=== PATIENT | male | born 1945 | race Caucasian/White ===

== ENCOUNTER 2021-02-26 14:37 | Inpatient (IN) | payer MEDICARE ==
[~2021-02-26] VITALS: Ht 177.8 cm; Wt 90.6 kg
[2021-02-26] MEDS ORDERED: CARBIDOPA-LEVODOPA PO (14:51)
[2021-02-26] MEDS ORDERED: COZAAR 25 MG TA25 M1 PO (14:51)
[2021-02-26] MEDS ORDERED: FLONASE 0.05%50 MCG INH (14:52)
[2021-02-26] MEDS ORDERED: FUROSEMIDE 20 M20 MG PO (14:52)
[2021-02-26] MEDS ORDERED: TOPROL XL25 MG PO (14:53)
[2021-02-26] MEDS ORDERED: KETOCONAZOLE TOP (14:53)
[2021-02-26] MEDS ORDERED: SINGULAIR 10 MG10 M1 PO (14:54)
[2021-02-26] MEDS ORDERED: PRILOSEC OTC20 MG PO (14:55)
[2021-02-26 17:14] VITALS: BP 118/68
[2021-02-26 19:00] VITALS: BP 131/62
[2021-02-27 04:33] LABS: HEMOGLOBIN 14.2 gm/dL (14.0-18.0); MCHC 33.8 g/dL (28.0-37.0); MCV 91.6 fL (80.0-100.0); MPV 9.4 fl. (7.2-11.1); RBC 4.58 mil/uL (4.50-6.00); RDW-CV 14.8 % (10.5-14.5); WBC 7.1 thou/uL (4.0-11.0)
[2021-02-27 04:58] LABS: CALCIUM 8.8 mg/dL (8.5-10.1); POTASSIUM 4.1 mmol/L (3.5-5.1)
--- NOTE | 2021-02-27 06:27 | NUR ---
Alert and oriented x 3 and forgetful. He is repetitive in his speech. He does have some neck curvature and has pillow to keep his head elevated to comfort. He has incontinence and uses a condom catheter. New external,male catheter placed and keys bag attached. He has had a large amount of urine output. He has been turned every 2 hours. He took his meds well with water. He has been awake nost of the night.
[2021-02-27 07:43] VITALS: BP 158/72
--- NOTE | 2021-02-27 10:08 | NUR ---
Nutrition: Pt admitted to rehab with Parkinsons. Not a lot of info yet. Per nursing, pt is eating fine. 2gm Na diet. Wt: 202#. Repetitive speech. Will follow weekly. Low risk at this time.
[2021-02-27 19:55] VITALS: BP 119/54
--- NOTE | 2021-02-28 05:47 | NUR ---
ASSUMED CARES AT 1920. ALERT AND ORIENTED. PLEASANT. DENIED ANY NEED FOR PAIN MEDS. CONDOM CATHETER IN PLACE. SLEPT MOST OF THE NIGHT. CALL LIGHT IN REACH. BED ALARM ON.
[2021-02-28 08:00] VITALS: BP 132/61
--- NOTE | 2021-02-28 17:23 | NUR ---
AM ASSESSMENT AND VITAL SIGNS COMPLETED DOCUMENTED. PT WORKED WITH PT, OT AND ST. EXTERNAL MALE CATHETER REPLACED TODAY. PT HAS A GOOD APPETITE AND FEEDS HIMSELF WITH MINIMAL SET UP. PT IS ABLE TO TRANSFER WITH MOD ASSIST OF TWO AND A LOT OF CUEING FOR SAFETY. NO C/O PAIN OR DISCOMFORT THIS SHIFT. FALL PRECAUTIONS AND HOURLY ROUNDING CONTINUE.
[2021-02-28 19:50] VITALS: BP 115/51
--- NOTE | 2021-03-01 04:35 | NUR ---
ASSUMED PT CARE AT 1930. PT RESTING IN BED AT SHIFT CHANGE. POLITE AND COOPERATIVE WITH CARES. DENIES PAIN. CONDOM CATHETER IN PLACE. SLEPT WELL OVERNIGHT. CALL LIGHT IN REACH, BED ALARM ON FOR SAFETY. HOURLY ROUNDING IN PROGRESS, WILL CONTINUE TO MONITOR.
[2021-03-01 08:00] VITALS: BP 134/68
--- NOTE | 2021-03-01 16:37 | NUR ---
PATIENT COMPLETED THERAPIES THIS SHIFT ORDERED. UP TO WHEELCHAIR THIS SHIFT, REPOSITIONED AND WAFFLE CUSHION IN PLACE. CONDOM CATH IN PLACE, SKIN ASSESSED; URINE OUTPUT CLEAR YELLOW TO DRAINAGE BAG. SMALL BM NOTED PER BSC. MAGIC MOUTHWASH ORDERED SCHED THIS SHIFT BY DR. SAMS FOR SORES TO INSIDE OF MOUTH. UP WITH ASSISTANCE; GAIT BELT AND WALKER. HERE THIS AFTERNOON.
[2021-03-01 19:55] VITALS: BP 97/47
[2021-03-01 20:12] LABS: URINE BILIRUBIN NEGATIVE (Negative); URINE BLOOD NEGATIVE (Negative); URINE CLARITY CLEAR; URINE COLOR YELLOW; URINE GLUCOSE-RANDOM NEGATIVE (Negative); URINE KETONES NEGATIVE (Negative); URINE LEUKOCYTES-REFLEX NEGATIVE (Negative); URINE NITRITE-REFLEX NEGATIVE (Negative); URINE PROTEIN NEGATIVE (Negative); URINE SPECIFIC GRAVITY 1.025 (1.005-1.030); URINE UROBILINOGEN 0.2 E.U./dl (0.2-1.0)
--- NOTE | 2021-03-02 04:55 | NUR ---
ASSUMED PT CARE AT 1930. PT ALERT AND ORIENTED X4, POLITE AND COOPERATIVE WITH CARES. PT TRANSFERRED TO BED WITH ASSIST OF TWO, GAIT BELT AND WALKER. PT SUCCESSFULLY USED URINAL OVERNIGHT, STAFF EMPTIED. DENIED PAIN. CALL LIGHT IN REACH, BED ALARM ON FOR SAFETY. HOURLY ROUNDING IN PROGRESS, WILL CONTINUE TO MONITOR.
[2021-03-02 07:40] VITALS: BP 142/58
--- NOTE | 2021-03-02 16:36 | NUR ---
PATIENT UP TO WHEELCHAIR THIS SHIFT, WAFFLE CUSHION IN PLACE AND REPOSITIONED IN CHAIR. UP WITH ASSISTANCE, GAIT BELT AND WALKER. PATIENT ASSISTED WITH UPPER AND LOWER BODY DRESSING THIS AM. PATIENT VOIDING PER URINAL WITH ASSISTANCE. PATIENT GIVEN PRN MOM AND SCHED COLACE THIS AM, PATIENT ATTEMPTED TO HAVE A STOOL X 2 BUT WAS NOT SUCCESSFUL VIA BSC.
[2021-03-02 20:00] VITALS: BP 106/74
--- NOTE | 2021-03-03 05:34 | NUR ---
ASSUMED CARES AT 1915. ALERT AND ORIENTED. PLEASANT. MOD ASSIST WITH GAIT BELT AND WALKER. UP TO BSC OR USED URINAL. DENIED ANY NEED FOR PAIN MEDS. SLEPT OFF AND ON. CALL LIGHT IN REACH AND BED ALARM ON.
[2021-03-03 08:00] VITALS: BP 127/55
--- NOTE | 2021-03-03 14:41 | NUR ---
INITIAL ASSESSMENT: [facility] WITH A DIAGNOSIS OF PARKINSON'S. PT A&O. PT INFORMS THAT PRIOR TO ADMIT HE WAS ACTIVE, INDEPENDENT WITH ADL'S, AND ABLE TO DRIVE. PT RESIDES AT HOME WITH SPOUSE. PT USES A CANE FOR MOBILITY, BUT ALSO OWNS A WALKER. PT HAS 0 HX OF HH OR SNF. CM ATTEMPTED T CONTACT PT'S TO DISCUSS [facility] AND PROCESS. NO ANSWER, BUT CM WILL F/U WITH HER AT ANOTHER TIME. CM ORIENTED TO TO THE [facility] AND PROCESSES, RESIDENTS RIGHTS INFO, TEAM [facility], AND TO THE ROLE OF CM. CM WILL REMAIN AVAILABLE TO ASSIST AND FOLLOW NEEDED.
--- NOTE | 2021-03-03 17:12 | NUR ---
AM ASSESSMENT AND VITAL SIGNS COMPLETED DOCUMENTED. PT WORKED WITH PT, OT AND ST TODAY, TOLERATED WELL. PT HAS BEEN USING THE URINAL WITHOUT DIFFICULTY. PT TRANSFERS WITH MOD ASSIST OF ONE, GAIT BELT AND WALKER. FALL PRECAUTIONS AND HOURLY ROUNDING CONTINUE.
[2021-03-03 19:00] VITALS: BP 117/51
--- NOTE | 2021-03-04 05:12 | NUR ---
ASSUMED CARE AT 1915. ALERT AND ORIENTED. PLEASANT. DENIED ANY PAIN. MOD ASSIST WITH GAIT BELT AND WALKER. UP TO BSC OR USED URINAL. SLEPT MOST OF THE NIGHT. CALL LIGHT IN REACH AND BED ALARM ON.
[2021-03-04 08:00] VITALS: BP 136/70
[2021-03-04 19:00] VITALS: BP 100/49
--- NOTE | 2021-03-05 02:00 | NUR ---
PT WAS SITTING IN CHAIR FOR ASSESSMENT AND REPORTS NO PAIN AT THIS TIME. HE HAS TRACE TO 1+ EDEMA IN BLE. PT WAS A LITTLE SARCASTIC ABOUT THE DIAGNOSIS OF PARKINSONS, PT WATER REFILLED AND QUESTIONS ANSWERED ABOUT MEDS. CALL LIGHT AND PERSONAL ITEMS WITHIN REACH. CHAIR ALARM IN PLACE FOR SAFETY
[2021-03-05 04:40] LABS: HEMATOCRIT 38.4 % (42.0-52.0); HEMOGLOBIN 13.1 gm/dL (14.0-18.0); MCH 30.9 pg (26.0-34.0); MCV 90.9 fL (80.0-100.0); MPV 9.6 fl. (7.2-11.1); RBC 4.22 mil/uL (4.50-6.00); RDW-CV 14.9 % (10.5-14.5); WBC 7.7 thou/uL (4.0-11.0)
[2021-03-05 04:45] LABS: CALCIUM 8.7 mg/dL (8.5-10.1); CREATININE 1.4 mg/dL (0.6-1.3); POTASSIUM 4.1 mmol/L (3.5-5.1)
--- NOTE | 2021-03-05 04:54 | NUR ---
PT AO X4 SITTING IN WHEEL CHAIR FOR ASSESSMENT. PT STATES HE HAS NOT HAD A BM IN DAYS DESPITE LAXITIVES AND STOOL SOFTNERS. PT HAS DIMINISHED PULSES IN BLE WITH 1+ BLE EDEMA. SHALLOW BREATHS REVEALS CLEAR BREATH SOUNDS. PT IS SKEPTICAL OF RECENT PARKINSONs DIAGNOSIS. PT IS ABLE TO ASSIST IN TRANSFERS WITH GAIT BELT AND GIVEN SOME TIME TO ACCOMPLISH.
[2021-03-05 08:00] VITALS: BP 133/53
--- NOTE | 2021-03-05 18:45 | NUR ---
Pt remained A&O x4 for entire shift. Vital signs stable. Pt pleasant with staff. Pt worked appropriately with therapies. Pt denies any pain. Pt continent of bowel and bladder. Bed in low position, bed/chair alarm on, call light within reach.
[2021-03-05 19:50] VITALS: BP 95/50
--- NOTE | 2021-03-05 23:45 | NUR ---
ASSUMED CARE AT 5. PATIENT RESTED IN W/C WITH LEGS DEPENDENT, DESPITE EDUCATION, UNTIL AFTER 2199. UP WITH GAIT BELT, WALKER, STAND PIVOT. PATIENT ADAMANTLY REFUSED TO REMOVE PANTS EVEN THOUGH THEY WERE, IN HIS WORDS, "SWEATY." PATIENT DENIES INCONTINENCE AND DENIES SPILLING URINAL. C/O HAVING LABS DRAWN AT "4 O'CLOCK IN THE MORNING." EDUCATED ON STANDING ORDERS FOR LABS DRAWN ONCE A WEEK ON WEDNESDAYS. SIGN PLACED ON DOOR TO REQUEST NO LABS UNTIL AFTER 0700. ALSO C/O THAT HE WAS AWAKENED TO GET HIS MEDS AT 0530. EDUCATED THAT IT IS THE [facility]'S RESPONSIBILITY FOR SOME MEDS, AND THE MEDS IN HIS CASE ARE ONES THAT ARE GIVEN BEFORE MEALS, INCLUDING BREAKFAST, FOR OPTIMAL ABSORPTION. PATIENT VERBALIZED UNDERSTANDING. PATIENT HAS ALREADY REFUSED HIS MAGIC MOUTHWASH. VOIDS PER URINAL. TURNS SELF. NO C/O PAIN. HOURLY ROUNDS CONTINUE. BED ALARM ON. CALL LITE IN REACH. WANTS DOOR OPEN.
--- NOTE | 2021-03-06 05:30 | NUR ---
OBSERVED APPEARING TO SLEEP ON HOURLY ROUNDS UNTIL AROUND 0515 WHEN HE AWOKE TO VOID. NO C/O PAIN. VOIDS PER URINAL. HOURLY ROUNDS CONTINUE. BED ALARM ON. CALL LITE IN REACH.
[2021-03-06 08:00] VITALS: BP 133/74
--- NOTE | 2021-03-06 14:57 | NUR ---
TEAM [facility] MEETING HELD YESTERDAY. PLAN TO RE-TEAM THE PT AND HAVE THE PT REMAIN ON THE UNIT FOR ANOTHER WEEK TO CONTINUE THERAPIES. PT AND SPOUSE IN AGREEMENT. PT PROGRESSING TOWARDS GOALS, BUT BARRIERS ARE ATTENTION, TANGENTILE, POOR INSIGHT AND RECALL, PARKINSON'S, FETIGUE, AND DECREASED BALANCE. CM WILL REMAIN AVAILABLE TO ASSIST AND FOLLOW NEEDED.
[2021-03-06 20:19] VITALS: BP 98/47
--- NOTE | 2021-03-07 04:58 | NUR ---
ASSUMED PT CARE AT 1930. PT SITTING UP IN RECLINER AT SHIFT CHANGE. STAYED UP LATE, TRANSFERRED TO BED WITH GAIT BELT, WALKER AND STAND PIVOT. PT VOIDED PER URINAL. TURNS SELF IN BED. DENIED PAIN. CALL LIGHT IN REACH, BED ALARM ON FOR SAFETY. HOURLY ROUNDING IN PROGRESS, WILL CONTINUE TO MONITOR.
[2021-03-07 07:45] VITALS: BP 121/54
--- NOTE | 2021-03-07 16:08 | NUR ---
ALERT AND ORIENTED X4 WITH PERIODS OF FORGETFULNESS. UP WITH 1 ASSIST, GAIT BELT AND WALKER. NO C/O PAIN. INCONTINENT AT TIMES OF URINE. USES CALL LIGHT FOR ASSIST. FALL PRECAUTIONS IN PLACE. BED ALARM AND CHAIR ALARM USED. TAKES PILL WHOLE WITHOUT DIFFICULTY.
[2021-03-07 20:00] VITALS: BP 119/53
--- NOTE | 2021-03-08 04:58 | NUR ---
ASSUMED PT CARE AT 1930. PT ALERT AND ORIENTED, OCCASIONALLY FORGETFUL. SITTING UP IN RECLINER AT SHIFT CHANGE, STAYED UP LATE. TRANSFERRED TO BED WITH GAIT BELT, WALKER AND STAND PIVOT. TAKES PILLS WHOLE WITH WATER ONE AT A TIME WITHOUT DIFFICULTY. VOIDED PER URINAL. TURNS SELF IN BED. DENIED PAIN. SLEPT WELL OVERNIGHT. CALL LIGHT IN REACH, BED ALARM FOR SAFETY. HOURLY ROUNDING IN PROGRESS, WILL CONTINUE TO MONITOR.
[2021-03-08 07:45] VITALS: BP 139/63
[2021-03-08 14:56] LABS: ABSOLUTE BASOPHILS 0.1 thou/uL (0.0-0.2); ABSOLUTE EOSINOPHILS 0.1 thou/uL (0.0-0.7); ABSOLUTE LYMPHOCYTES 1.7 thou/uL (0.8-5.3); ABSOLUTE MONOCYTES 0.5 thou/uL (0.0-1.2); ABSOLUTE NEUTROPHILS 4.8 thou/uL (1.6-8.1); BASOPHILS 1.2 %; EOSINOPHILS 1.8 %; HEMATOCRIT 42.2 % (42.0-52.0); HEMOGLOBIN 14.3 gm/dL (14.0-18.0); LYMPHOCYTES 23.3 %; MCH 31.1 pg (26.0-34.0); MCHC 33.9 g/dL (28.0-37.0); MCV 91.7 fL (80.0-100.0); MONOCYTES 7.3 %; MPV 9.4 fl. (7.2-11.1); NUCLEATED RBCS 0 /100WBC; PLATELET COUNT* 277 thou/uL (150-400); POLYS 66.4 %; RDW-CV 14.6 % (10.5-14.5); WBC 7.2 thou/uL (4.0-11.0)
--- NOTE | 2021-03-08 17:01 | NUR ---
ALERT AND ORIENTED X4. UP WITH 1 ASSIST, GAIT BELT AND WALKER. NO C/O PAIN. USUALLY CONTINENT OF BOWEL AND BLADDER. HAS SOME URGENCY WITH BLADDER AT TIMES. TAKES PILLS WHOLE 1 AT A TIME WITHOUT DIFFICULTY. USES CALL LIGHT FOR ASSIST. FALL PRECAUTIONS IN PLACE. BED ALARM AND CHAIR ALARM USED.
[2021-03-08 19:00] VITALS: BP 118/58
--- NOTE | 2021-03-09 05:25 | NUR ---
ASSUMED PT CARE AT 1930. PT ALERT AND ORIENTED, OCCASIONALLY FORGETFUL. SITTING UP IN RECLINER AT SHIFT CHANGE, STAYS UP LATE. TRANSFERRED TO BED WITH GAIT BELT, WALKER AND STAND PIVOT. TAKES PILLS WHOLE WITH WATER ONE AT A TIME WITHOUT DIFFICULTY. VOIDED PER URINAL. TURNS SELF IN BED. DENIES PAIN. SLEPT WELL OVERNIGHT. CALL LIGHT IN REACH, BED ALARM ON FOR SAFETY. HOURLY ROUNDING IN PROGRESS, WILL CONTINUE TO MONITOR.
[2021-03-09 07:45] VITALS: BP 131/60
--- NOTE | 2021-03-09 16:38 | NUR ---
ALERT AND ORIENTED X4. UP WITH 1 ASSIST, GAIT BELT AND WALKER. NO C/O PAIN. USUALLY CONTINENT OF BOWEL AND BLADDER. TAKES PILLS WHOLE WITHOUT DIFFICULTY. USES CALL LIGHT FOR ASSIST. FALL PRECAUTIONS IN PLACE, BED ALARM AND CHAIR ALARM USED.
[2021-03-09 20:30] VITALS: BP 96/52
--- NOTE | 2021-03-10 05:26 | NUR ---
PT UP IN CHAIR AT HS FOR A FEW HOURS, TO BED BEFORE MIDNIGHT AND HAS SLEPT WELL. UP WITH ASSIST,GB, WALKER. USING URINAL, WEARS BRIEF FOR STRESS INCONTINENCE WITH URGENCY. DENIES PAIN THIS SHIFT, PLEASANT, AOX4. ROOM AIR. CALL LITE IN EASY REACH, BED ALRM ON FOR SAFETY OVERNIGHT.
[2021-03-10 07:45] VITALS: BP 139/65
--- NOTE | 2021-03-10 15:05 | NUR ---
CM SPOKE TO THE PT TO DISCUSS ANY QUESTIONS OR CONCERNS THAT HE MAY HAVE FR THIS WEEKS TEAM [facility] MEETING. PT INFORMS THAT HE IS SUPPOSED TO GET HIS '2ND COVID SHOT ON 03/17/21, AND I NEED TO KNOW HOW I CAN DO THAT HERE'. RN IN-CHARGE OF THE PT INFORMS THAT THE SHOT IS SCHEDULED FOR 03/14/21. CM ATTEMPTED TO CONTACT PT'S SPOUSE TO CONFIRM THE DATE OF THE SHOT. CM ALSO TO REACH OUT TO THE HEALTH DEPT TO DISCUSS THIS WELL, THE PT INFORMS THAT HE HAD PLANNED TO GET THE SHOT AT HOME AND THE HEALTH DEPT WAS GOING TO DO THAT BEFORE HE CAME HERE. CM WILL REMAIN AVAILABLE TO ASSIST AND FOLLOW NEEDED.
--- NOTE | 2021-03-10 16:37 | NUR ---
ALERT AND ORIENTED X4. UP WITH 1 ASSIST, GAIT BELT AND WALKER. OCCAS. INCONTIENT OF URINE. NO C/O OF PAIN. TAKES PILLS WITHOUT DIFFICULTY. USES CALL LIGHT FOR ASSIST. FALL PRECAUTIONS IN PLACE. BED ALARM AND CHAIR ALARM USED.
[2021-03-10 19:00] VITALS: BP 123/51
--- NOTE | 2021-03-11 04:59 | NUR ---
PT SLEPT WELL AFTER GOING TO BED 2300. UP WITH GB, WALKER AND SBA. USING URINAL TO VOID, BRIEF ON FOR OCC STRESS INCONTINENCE WITH URGENCY. TAKES PILLS WHOLE WITH WATER. DENIES PAIN OR PROBLEMS OVERNIGHT. NO LABS TODAY. PLEASANT, TALKATIVE, ABLE TO USE CALL LITE AND MAKE NEEDS KNOWN. BED AND CHAIR ALARMS ON FOR SAFETY OVERNIGHT.
[2021-03-11 08:00] VITALS: BP 130/65
--- NOTE | 2021-03-11 18:04 | NUR ---
AM ASSESSMENT AND VITAL SIGNS COMPLETED DOCUMENTED. PT CONTINUES TO WORK WITH PT, OT AND ST. PT HAS BEEN CONTINENT OF BOWEL AND BLADDER THIS SHIFT. PT IS ABLE TO AMBULATE TO AND FROM THE BATHROOM WITH A WALKER AND CONTACT GUARD ASSISTANCE. NO C/O PAIN OR DISCOMFORT. FALL PRECAUTIONS AND HOURLY ROUNDING CONTINUE.
[2021-03-11 19:41] VITALS: BP 111/59
--- NOTE | 2021-03-12 05:02 | NUR ---
Alert and oriented x 4. He is up with assist x 1 transfer to the bed. Vitals are stable. He has slight tremors at times. He was up in a wheelchair at start of the shift. He denies any pain. He did sleep well.
[2021-03-12 08:01] VITALS: BP 134/65
[2021-03-12 19:00] VITALS: BP 119/53
[2021-03-13 08:30] VITALS: BP 108/40
--- NOTE | 2021-03-13 17:02 | NUR ---
PATIENT COMPLETED THERAPIES THIS SHIFT ORDERED. UP WITH ASSISTANCE; GAIT BELT AND WALKER. VOIDING PER URINAL, ATTEMPTED TO HAVE A BM BUT WAS UNSUCCESSFUL. NO COMPLAINTS OF PAIN. PATIENT TO HAVE FAMILY TRAINING TOMORROW AT 1200, POSSIBLE DISCHARGE TOMORROW.
[2021-03-13 19:50] VITALS: BP 108/48
[2021-03-14 07:50] VITALS: BP 137/63
[2021-03-14 10:27] VITALS: BP 137/63
[2021-03-14] MEDS ORDERED: CARBIDOPA-LEVO1 EAC8 PO (12:20)
[2021-03-14] MEDS ORDERED: SINEMET 25-1001 EAC1 PO (12:21)
[2021-03-14 14:11] VITALS: BP 137/63
--- NOTE | 2021-03-14 15:00 | NUR ---
PATIENT DISCHARGED TO HOME WITH HOME HEALTH. FAMILY TRAINING TODAY WITH SPOUSE. VERBALIZES UNDERSTANDING OF PAPERWORK AND MEDS PREVIOUSLY SENT OVER BY [facility]. PATIENT TAKEN OUT VIA WHEELCHAIR WITH ALL BELONINGS.
== END 2021-03-14 15:04 | disposition home health service (06) | DRG 185 ==
LOC: M.REH 14:37
PROVIDERS: Internal Medicine; ADMIT Physical Medicine & Rehabilitation; ATTEND Physical Medicine & Rehabilitation
DX: S22.42XA Multiple fractures of ribs, left side, initial encounter for closed fracture (principal); G20 Parkinson's disease; I11.0 Hypertensive heart disease with heart failure; I50.9 Heart failure, unspecified; I27.20 Pulmonary hypertension, unspecified; W18.39XA Other fall on same level, initial encounter; R00.1 Bradycardia, unspecified; R53.81 Other malaise; R32 Unspecified urinary incontinence; K59.00 Constipation, unspecified; Z98.41 Cataract extraction status, right eye; Z98.42 Cataract extraction status, left eye; Z90.79 Acquired absence of other genital organ(s); Y93.89 Activity, other specified; Y92.89 Other specified places as the place of occurrence of the external cause; Y99.8 Other external cause status; Z87.891 Personal history of nicotine dependence